=== PATIENT | female | born 1965 | race Caucasian/White ===

== ENCOUNTER 2018-10-22 09:44 | Emergency (ER) | payer SELFPAY ==
[~2018-10-22] VITALS: Ht 162.6 cm; Wt 99.8 kg
[2018-10-22 09:52] VITALS: Ht 162.6 cm; Wt 99.8 kg
[2018-10-22 12:15] VITALS: BP 139/68
== END 2018-10-22 12:15 | disposition home or self-care (01) ==
LOC: ED 09:44
DX: I80.3 Phlebitis and thrombophlebitis of lower extremities, unspecified (principal); Z98.890 Other specified postprocedural states
CPT/HCPCS: J1885; Q0092

== ENCOUNTER 2018-10-31 11:32 | Emergency (ER) | payer SELFPAY ==
[~2018-10-31] VITALS: Ht 162.6 cm; Wt 99.3 kg
[2018-10-31 11:45] VITALS: Ht 162.6 cm; Wt 99.3 kg
[2018-10-31 15:20] LABS: BASOPHIL % 0.7 % (0-2); PLATELET COUNT 265 x10^3mcL (130-400)
[2018-10-31 15:22] LABS: RED CELL DISTRIBUTION WIDTH 11.4 % (11.5-14.5)
[2018-10-31 15:40] LABS: CALCIUM 8.4 mg/dL (8.5-10.1); CARBON DIOXIDE 29.2 mmol/L (21-32); CHLORIDE SERUM 107 mmol/L (98-107); CREATININE SERUM 0.6 mg/dL (0.6-1.0); GFR1 > 60 mL/min; GLUCOSE SERUM 85 mg/dL (74-106); POTASSIUM SERUM 4.1 mmol/L (3.5-5.1); SODIUM SERUM 142 mmol/L (136-145)
[2018-10-31 15:44] LABS: ALBUMIN 3.4 g/dL (3.4-5.0); ALKALINE PHOSPHATASE 45 U/L (46-116); BILIRUBIN TOTAL 0.5 mg/dL (0.20-1.00); TOTAL PROTEIN, SERUM 6.6 g/dL (6.4-8.2)
[2018-10-31 16:18] LABS: ALT/SGPT 18 U/L (14-59)
[2018-10-31 16:49] VITALS: BP 141/67
[2018-10-31 16:57] LABS: AST/SGOT 8 U/L (15-37)
== END 2018-10-31 16:49 | disposition home or self-care (01) ==
LOC: ED 11:32
PROVIDERS: Emergency Medicine
DX: I82.442 Acute embolism and thrombosis of left tibial vein (principal)
CPT/HCPCS: 36415; A4570; Q0092